=== PATIENT | female | born 1990 ===

== ENCOUNTER 2017-01-25 09:12 | Emergency (ER) | payer MEDICAID ==
[2017-01-25 09:28] VITALS: RESP 16; TEMP 98.3
--- NOTE | 2017-01-25 09:57 | ED PDOC ---
Arrival/HPI - General Chief Complaint: Lower Extremity Problem/Injury Time Seen by Provider: 01/25/17 09:38 Historian: Patient - History of Present Illness Narrative History of Present Illness (Text): 01/25/17 09:55 Radha Kohli is a 26 year old female who presents to the emergency department complaining of pain and swelling to left ankle s/p injury 2 hours prior to arrival. States that she was descending stairs when she missed a step and twisted her left ankle. Reports pain is worsened with ROM and weight bearing. Denies any other history of trauma. Denies any fever, chills, headache, dizziness, chest pain, difficulty breathing, nausea, vomiting, diarrhea, urinary symptoms, or any other complaints at this time. Time/Duration: 1-3 hours Symptom Onset: Sudden Symptom Course: Unchanged Context: Home Past Medical History - Provider Review Nursing Documentation Reviewed: Yes - Psychiatric Hx Psychophysiologic Disorder: No Hx Substance Use: No Family/Social History - Physician Review Nursing Documentation Reviewed: Yes Family/Social History: No Known Family HX Smoking Status: Never Smoked Hx Alcohol Use: No Hx Substance Use: No Allergies/Home Meds Allergies/Adverse Reactions: Allergies No Known Allergies Allergy (Verified 08/13/14 11:17) Home Medications: Home Meds Medication Instructions Recorded Confirmed Control 1 tab PO DAILY 01/25/17 Review of Systems - Physician Review All systems were reviewed & negative as marked: Yes - Review of Systems Constitutional: absent: Fatigue, Fevers Respiratory: absent: SOB, Cough Cardiovascular: absent: Chest Pain, Palpitations Gastrointestinal: absent: Abdominal Pain, Diarrhea, Nausea, Vomiting Genitourinary Female: absent: Dysuria Musculoskeletal: Other (left ankle swelling and pain ). absent: Back Pain, Neck Pain Neurological: absent: Headache, Dizziness Physical Exam - Physical Exam Narrative Physical Exam (Text): 01/25/17 09:58 Head: Atraumatic. Normocephalic. Neck: Supple. Full ROM. Cardiovascular: Regular rate. Regular rhythm. Distal pulses are 2+ and symmetric. Pulmonary/Chest: No evidence of respiratory distress. Clear to auscultation bilaterally. No wheezing, rales or rhonchi. Back: No CVA tenderness. No midline pain. Extremities: No edema. No cyanosis. No clubbing. Full range of motion in all extremities. There is soft tissue swelling to dorsomedial aspect of left ankle. No Achilles or calf tenderness. No knee or hip pain. No calf pain. NV intact. No lacerations. No ligamentous laxity. Skin: Skin is warm and dry. No petechiae. No purpura. Neurological: Alert, awake. Motor and sensory exam intact. Psychiatric: Good eye contact. Normal interaction, affect, and behavior. Vital Signs Reviewed: Yes Vital Signs Temp Pulse Resp BP Pulse Ox 01/25/17 11:28 76 16 118/65 98 01/25/17 09:24 98.3 F 83 16 119/81 99 Temperature: Afebrile Blood Pressure: Normal Pulse: Regular Respiratory Rate: Normal Appearance: Positive for: Well-Appearing, Non-Toxic, Comfortable Pain Distress: Mild Medical Decision Making ED Course and Treatment: 01/25/17 10:02 Impression: A 26 year old female who presents to the emergency department complaining of left ankle pain status post injury 2 hours prior to arrival. Differential Diagnosis include but are not limited to: fracture vs. ankle sprain Plan: -- Left ankle X-ray -- Reassess and disposition Progress Notes: Patient with no knee or calf pain. NV intact. Negative drawer's sign. Suspect ankle sprain. Will place in splint/give crutches, advised ortho follow-up. 01/25/17 10:39 Ankle X-ray interpreted by me, negative for acute fracture. Will place patient in air cast and crutches for ankle sprain. Patient stable for discharge and advised to follow up with orthopedist within few days. - RAD Interpretation Radiology Orders: 01/25/17 09:46 ANKLE LEFT 3 VIEWS ROUTINE [RAD] Stat Certified Flex Endoscope Reprocessor: ED Physician - Scribe Statement The provider has reviewed the documentation as recorded by the Raffaele Sanderson Provider Attestation: All medical record entries made by the Raffaele were at my direction and personally dictated by me. I have reviewed the chart and agree that the record accurately reflects my personal performance of the history, physical exam, medical decision making, and the department course for this patient. I have also personally directed, reviewed, and agree with the discharge instructions and disposition. Disposition/Present on Arrival - Present on Arrival Any Indicators Present on Arrival: No History of DVT/PE: No History of Uncontrolled Diabetes: No Urinary Catheter: No History of Decub. Ulcer: No History Surgical Site Infection Following: None - Disposition Have Diagnosis and Disposition been Completed?: Yes Diagnosis: Ankle sprain Disposition: HOME/ ROUTINE Disposition Time: 10:32 Patient Plan: Discharge Condition: GOOD Discharge Instructions (ExitCare): Ankle Sprain (ED) Additional Instructions: Rest. No strenuous activity. Use crutches. Wear splint/air cast as directed. Take antiinflammatories for pain. For any swelling, redness, increased or persistent pain or discomfort, get rechecked. You must follow-up with an orthopedic doctor for any persistent pain. Prescriptions: Naproxen [Naprosyn Tab] 250 mg PO BID PRN #10 tab PRN Reason: Pain, Mild (1-3) Referrals: Marin Garnica MD [Primary Care Provider] - Follow up with primary [facility] [place] [Outside] - Follow up with primary [facility] [Outside] - Follow up with primary
--- NOTE | 2017-01-25 10:40 | RAD ---
PROCEDURE: Left Ankle Radiographs. HISTORY: left ankle pain COMPARISON: None FINDINGS: BONES: Normal. No fracture. JOINTS: Normal. No osteoarthritis. Ankle mortise maintained. Talar dome intact SOFT TISSUES: Normal. OTHER FINDINGS: None. IMPRESSION: Normal left ankle radiographs.
[2017-01-25 11:30] VITALS: BP 118/65; PULSE 76; O2SAT 98
== END 2017-01-25 11:30 | disposition home or self-care (01) ==
LOC: ED 09:12 → MERGE 09:12 → ED 11:30
DX: S93.402A Sprain of unspecified ligament of left ankle, initial encounter (principal); X50.1XXA Overexertion from prolonged static or awkward postures, initial encounter; Y92.009 Unspecified place in unspecified non-institutional (private) residence as the place of occurrence of the external cause